=== PATIENT | male | born 1960 | race Two or more races ===

== ENCOUNTER → 2022-06-10 | Day surgery (SDC) | payer OTHER | END | disposition home or self-care (01) | LOC: ADM 06-09 10:30 → CIR.AMB 06:45 | PROVIDERS: ATTEND Surgery Surgery of the Hand | DX: M65.841 Other synovitis and tenosynovitis, right hand (principal); Z88.0 Allergy status to penicillin; F17.210 Nicotine dependence, cigarettes, uncomplicated; Z71.6 Tobacco abuse counseling; Z20.822 Contact with and (suspected) exposure to COVID-19 ==